=== PATIENT | male | born 1945 | race Caucasian/White ===

== ENCOUNTER 2023-10-14 01:33 | Emergency (ER) | payer MEDICARE, BC, SELFPAY ==
[2023-10-14] VITALS (11 sets, daily range): BP systolic 129–172; BP diastolic 72–94; PULSE 47–57; RESP 16–18; TEMP 36.4; O2SAT 92–100; BMI 28.5
--- NOTE | 2023-10-14 01:35 | ED.GENADULT ---
HPI - General Adult General Time Seen by Provider: 01:35 Date Seen: 10/14/23 Chief complaint: Shortness of Breath/Dyspnea Stated complaint: Short of breath Time Seen by Provider: 10/14/23 01:41 Source: patient, RN notes reviewed and old records reviewed Mode of arrival: ambulatory Limitations: no limitations History of Present Illness HPI narrative: 78-year-old male who comes in today with shortness of breath. Woke with symptoms about 30 minutes prior to the emergency department. Denies any other recent illness cough, nausea, vomiting. Patient describes shortness of breath chest tightness, feeling better but still little chest tightness. No nausea, vomiting. Has noticed little bit of wheezing recently which he attributed allergies. No prior history of asthma, COPD, or heart failure. He does have a history of hypertension and takes metoprolol and losartan. Related Data Home Medications ?Medication ?Instructions ?Recorded ?Confirmed metoprolol succinate 100 mg mg PO 10/14/23 tablet,extended release 24 hr Allergies Allergy/AdvReac Type Severity Reaction Status Date / Time Penicillins AdvReac Verified 10/14/23 01:41 [facility] PFS Social History Smoking Status: Never smoker How often do you have a drink containing alcohol: never AUDIT-C Alcohol total score: 0 Non-prescribed substance use: denies use Exam Narrative: Exam Narrative: General: Well-developed and well-nourished, no acute distress Head: Atraumatic and normocephalic Eyes: Pupils are equal reactive, extraocular motions intact, conjunctiva clear ENT: External nose and ears are normal, posterior pharynx without erythema or exudate Neck: No midline cervical tenderness, full spontaneous range of motion the neck, trachea midline, no adenopathy Heart: Regular rate and rhythm no murmurs or thrills Lungs: Clear to auscultation bilaterally without wheezes or crackles Abdomen: Soft, nontender, nondistended with active bowel sounds Musculoskeletal: No tenderness, deformity, or edema Neurologic: Awake, alert, and oriented x3, no gross focal neurologic deficits, cranial nerves intact as tested Psych: Mood and affect are appropriate Skin: No rashes Const: Vital Signs, click to edit/add: Vital Signs - 24 hr 10/14/23 01:39 10/14/23 01:46 10/14/23 02:00 Temperature 97.6 F Pulse Rate 57 L 49 L Pulse Rate [Pulse Oximeter] 56 L Respiratory Rate 18 Blood Pressure Blood Pressure [Ri ght Upper Arm] 172/82 H Pulse Oximetry 98 98 100 Oxygen Delivery Me thod Room Air 10/14/23 02:05 10/14/23 02:15 10/14/23 02:16 Temperature Pulse Rate 47 L 50 L 53 L Pulse Rate [Pulse Oximeter] Respiratory Rate 16 Blood Pressure 144/94 H 131/78 Blood Pressure [Ri ght Upper Arm] Pulse Oximetry 98 95 92 Oxygen Delivery Me thod 10/14/23 02:30 10/14/23 02:31 10/14/23 02:45 Temperature Pulse Rate 52 L 56 L 51 L Pulse Rate [Pulse Oximeter] Respiratory Rate Blood Pressure 129/74 Blood Pressure [Ri ght Upper Arm] Pulse Oximetry 93 94 93 Oxygen Delivery Me thod 10/14/23 02:46 Temperature Pulse Rate 47 L Pulse Rate [Pulse Oximeter] Respiratory Rate Blood Pressure 129/72 Blood Pressure [Ri ght Upper Arm] Pulse Oximetry 92 Oxygen Delivery Ok thod Course Course ED Course: Patient seen and examined, prior records are reviewed. Patient presents today with chest tightness and shortness of breath that woke him from sleep. No palpitations, no nausea vomiting. Has not noticed any exercise intolerance, chest pain, or shortness of breath with activity. On exam here, finally stable, initial EKG is reassuring. Labs ordered along with chest x-ray. Suspect this could represent bronchospasm, heart failure with orthopnea is little bit less likely. Consider also dysrhythmia like SVT but patient had no sensation of palpitations hand has normal EKG now. Reevaluation(s) Time of Reevaluation #1: 02:56 Reevaluation #1: Labs ordered and independently interpreted by me with normal CBC, normal basic panel, negative troponin, normal BNP. Patient says wheezing and shortness of breath improved after nebulizer treatment. Suspect mild bronchitis or possible allergic bronchitis this patient does report a little bit of wheezing recently along with his more severe shortness of breath and chest tightness tonight. Stable for discharge with prednisone and albuterol. Vital Signs Vital signs: Initial Vital Signs Temperature 97.6 F 10/14/23 01:39 Temperature Source Temporal Artery Scan 10/14/23 01:39 Pulse Rate 56 L 10/14/23 01:39 Respiratory Rate 18 10/14/23 01:39 Blood Pressure 172/82 H 10/14/23 01:39 Blood Pressure Mean 112 H 10/14/23 01:39 Blood Pressure Position Sitting 10/14/23 01:39 Pulse Oximetry 98 10/14/23 01:39 Oxygen Delivery Method Room Air 10/14/23 01:39 Vital Signs Temperature 97.6 F 10/14/23 01:39 Pulse Rate 56 L 10/14/23 01:39 Respiratory Rate 18 10/14/23 01:39 Blood Pressure 172/82 H 10/14/23 01:39 Pulse Oximetry 98 10/14/23 01:39 Oxygen Delivery Method Room Air 10/14/23 01:39 Temperature 97.6 F 10/14/23 01:39 Pulse Rate 47 L 10/14/23 02:46 Respiratory Rate 16 10/14/23 02:16 Blood Pressure 129/72 10/14/23 02:46 Pulse Oximetry 92 10/14/23 02:46 Oxygen Delivery Method Room Air 10/14/23 01:39 Medications Administered Medications: Generic Name Dose Route Start Last Admin Trade Name Freq PRN Reason Stop Dose Admin Albuterol/Ipratropium 1 neb 10/14/23 01:50 10/14/23 02:09 Iprat-Albut 0.5-2.5 Mg/3 Ml Neb 10/14/23 01:51 1 neb ONCE ONE Administration Medical Decision Making Lab Data Labs: Lab Results 10/14/23 Range/Units 02:00 WBC 5.32 (4.50-11.00) K/uL RBC 4.49 (4.30-5.90) m/uL Hgb 14.6 (13.5-17.5) gm/dL Hct 41.1 (37.0-53.0) % MCV 92 (80-100) fL MCH 33 (26-34) pg MCHC 36 (32-36) gm/dL RDW Coeff of Mayruri 12.4 (11.5-15.5) % Plt Count 197 (140-440) K/uL Neut % (Auto) 59.4 (42.0-72.0) % Lymph % (Auto) 26.1 (20-44) % [place] % (Auto) 9.6 (0.0-11.0) % Eos % (Auto) 4.1 (0.0-7.0) % Baso % (Auto) 0.4 (0.0-3.0) % Neut # (Auto) 3.16 (1.7-7.0) K/uL Lymph # (Auto) 1.39 (0.90-2.90) K/uL [place] # (Auto) 0.50 (0.00-0.90) K/UL Eos # (Auto) 0.22 (0.00-0.50) K/uL Baso # (Auto) 0.02 (0.00-0.30) K/uL Abs Immat Gran (auto) 0.02 (0.00-0.30) K/uL Imm/Tot Granulo (auto) 0.4 % Sodium 140 (135-149) mmol/L Potassium 3.7 (3.6-5.1) mmol/L Chloride 106 (96-114) mmol/L Carbon Dioxide 26 (20-32) mmol/L Anion Gap 8 (7-15) mEq/L BUN 23 (7-30) mg/dL Creatinine 0.9 (0.5-1.5) mg/dL Estimated Creat Clear 68.98 Estimated GFR 89 ml/min Glucose 113 (60-115) mg/dL Calcium 8.8 (8.4-10.6) mg/dL Magnesium 1.9 (1.5-2.6) mg/dL NT-Pro-B Natriuret Pep 45 pg/mL POC Troponin I 0.00 L (0.01-0.04) ng/ml ECG Data Attestation: I personally reviewed and interpreted this ECG as follows: Prior ECG tracings: not available for review Interpretation: Performed at 1:43 a.m. independently interpreted by me demonstrates sinus rhythm with sinus arrhythmia rate [address] changes, no acute ischemic changes, ID 178, QTC 422. No prior for comparison. Discharge Plan Discharge Clinical Impression: Acute bronchospasm, Wheezing Patient Disposition: Home, Self-Care Condition: Stable Instructions: Bronchospasm (ED) Additional Instructions: Take prednisone as prescribed Use albuterol inhaler 2 puffs every 2 hours while awake for 24 hours, then 2 puffs every 3 hours while awake for 24 hours, then 2 puffs every 4 hours as needed Follow-up with your primary care doctor in 2-3 days Activity Level: No Restrictions Discharge Diet: Regular Prescriptions: No Action metoprolol succinate 100 mg tablet extended release 24 hr PO Follow Up/Referrals: Francesco Caballero MD [Primary Care Provider] - Stand Alone Forms: [employer] Info Instructions
[2023-10-14 02:08] LABS: Basophils Absolute Auto 0.02 K/uL (0.00-0.30); Basophils Percent Auto 0.4 % (0.0-3.0); Eosinophils Absolute Auto 0.22 K/uL (0.00-0.50); Eosinophils Percent Auto 4.1 % (0.0-7.0); Hematocrit 41.1 % (37.0-53.0); Hemoglobin* 14.6 gm/dL (13.5-17.5); Immature Granulocytes Abs Auto 0.02 K/uL (0.00-0.30); Immature Granulocytes Pct Auto 0.4 %; Lymphocytes Absolute Auto 1.39 K/uL (0.90-2.90); Lymphocytes Percent Auto 26.1 % (20-44); Mean Corpuscular HGB Conc 36 gm/dL (32-36); Mean Corpuscular Hemoglobin 33 pg (26-34); Mean Corpuscular Volume 92 fL (80-100); Monocytes Percent Auto 9.6 % (0.0-11.0); Neutrophils Absolute Auto 3.16 K/uL (1.7-7.0); Neutrophils Percent Auto 59.4 % (42.0-72.0); Platelet Count* 197 K/uL (140-440); RDW Coefficient of Variation % 12.4 % (11.5-15.5); Red Blood Count 4.49 m/uL (4.30-5.90); White Blood Count* 5.32 K/uL (4.50-11.00)
[2023-10-14] MEDS: IPRAT-ALBUT 0.5-2.5 MG/3 ML NEB 1 NEB IH (02:09)
[2023-10-14 02:12] LABS: Slide Review Reflex No
[2023-10-14 02:21] LABS: Chloride* 106 mmol/L (96-114); Potassium* 3.7 mmol/L (3.6-5.1); Sodium* 140 mmol/L (135-149)
[2023-10-14 02:23] LABS: Creatinine* 0.9 mg/dL (0.5-1.5); Est. Creatinine Clearance* 68.98; Estimated Glomerular Filt Rate 89 ml/min
[2023-10-14 02:24] LABS: Anion Gap 8 mEq/L (7-15); Blood Urea Nitrogen* 23 mg/dL (7-30); Calcium* 8.8 mg/dL (8.4-10.6); Carbon Dioxide* 26 mmol/L (20-32); Glucose* 113 mg/dL (60-115); Magnesium* 1.9 mg/dL (1.5-2.6)
[2023-10-14 02:34] LABS: NT Pro B Type NatriureticPept* 45 pg/mL
== END 2023-10-14 03:12 | disposition home or self-care (01) ==
PROVIDERS: Emergency Provider Family Medicine; PCP Family Medicine
DX: J98.01 Acute bronchospasm (principal); R06.2 Wheezing
CPT/HCPCS: 36415; 80048; 83735; 83880; 84484; 85025; 93005; 94640; 94761; 99284

== ENCOUNTER 2025-03-07 03:38 | Emergency (ER) | payer MEDICARE, BC, SELFPAY ==
--- OUTSIDE RECORDS SUMMARY | 2019-11-17 07:31 | XMS_ITS | Continuity of Care Document ---
Author Organization [facility] Address [address] [address] [place] [address] Care Team Providers Care Dish Stacker Name Role Phone [place], [place] Unavailable Unav ailable Procedures Procedure Date Colono Pt Doc Pt W/o Advance Directives Directive Yes / No Effective Date File Name No Information Encounters Encounter Description Practice Location Reason(s) For Visit Diagnoses Date Provider Providers Copied on Encounter [facility], [address] [address], [place], [place], [id number], [place] [facility] No Information [facility]. [address] [address], [place], [place], [id number], . tel:[phone] Family History Family Member Type Diagnosis Age At Onset No Information Payers Payer name Insurance type Covered democrat ID Authoriza tion(s) Medicare [facility] [id number] Blue Cross Of [facility] [id number] Social History Type Description Quantity Date Captured Comments Sex Male Smoking Status No Information Chief Complaint And Reason For Visit No Information Reason For Referral Reason For Referral No Information History Of Present Illness Encounter Date Complaint History Of Prese nt Illness No Information Functional Status Date Functional Assessmen t No Information Instructions Date Instruction Additional Infor mation No Information Assessments Type Assessment Date No Information Patient Care Teams Name Effective Dates (start - stop) Status Members No Information
--- OUTSIDE RECORDS SUMMARY | 2019-11-17 07:31 | XMS_ITS | Continuity of Care Document ---
Author Organization [facility] Address [address] [address] [place] [address] Care Team Providers Care Owner/Operator Name Role Phone [place], [place] Unavailable Unav ailable Procedures Procedure Date Colono Pt Doc Pt W/o Advance Directives Directive Yes / No Effective Date File Name No Information Encounters Encounter Description Practice Location Reason(s) For Visit Diagnoses Date Provider Providers Copied on Encounter [facility], [address] [address], [place], [place], [id number], [place] [facility] No Information [facility]. [address] [address], [place], [place], [id number], . tel:[phone] Family History Family Member Type Diagnosis Age At Onset No Information Payers Payer name Insurance type Covered republican ID Authoriza tion(s) Medicare [facility] [id number] Blue Cross Of [facility] [id number] Social History Type Description Quantity Date Captured [...]
--- OUTSIDE RECORDS SUMMARY | 2025-01-27 04:38 | XMS_ITS | Continuity of Care Document ---
Author Organization [facility] Address [address] [address] [place] [address] Phone Care Team Providers Care Valet Attendant Name Role Phone Anam Valentino MD Unavailable Unavailabl e Allergies, Adverse Reactions, Alerts Substance Reaction Status Criticality PENICILLIN G POTASSIUM Rash Active No In formation Medications Medication Instructions Dosage Effective Dates (start - stop) Status Comments pravastatin 10 mg tablet take 1 tablet b y oral route every day 10 MG - Active hydrochlorothiazide 12.5 mg tablet take 1 tablet by oral route every day 12.5 MG - Active metoprolol tartrate 50 mg tablet take 1 tablet by oral route every day with meals 50 MG - Active Procedures Procedure Date Level Iv-surg Path Gross/micro 20 CRS Charges Level Iv-surg Path Gross/micro 18 CRS Charges Level Iv-surg Path Gross/micro 13 CRS Charges Level Iv-surg Path Gross/micro 08 Advance Directives Directive Yes / No Effective Date File Name No Information Encounters Encounter Description Practice Location Reason(s) For Visit Diagnoses Date Provider Providers Copied on Encounter [facility], [address] [address], [place], [id number], [place] tel:[phone] [facility] No Information 5 Bob Mendieta. [address] [facility], [facility] [address], [place], [place], [id number], [place]. tel:[phone] [facility], [address] [address], [place], [id number], tel:[phone] [facility] Benign neoplasm of sigmoid colonPersonal history of colonic polypsBenign colon polypEncounter for screening for malignant neoplasm of colonBenign neoplasm of cecum 0 No Information Referring Provider: Referral Self, USE FOR SELF REFERRALS. [facility], [address] [address], [place], [id number], tel:[phone] [facility] No Information 0 No Information [facility], [address] [address], [place], [id number], [place] tel:[phone] [facility] Benign colon polypPersonal history of colonic polypsEncounter for screening for malignant neoplasm of colonBenign neoplasm of sigmoid colonBenign neoplasm of sigmoid colonPersonal history of colonic polyps 8 No Information Referring Provider: Referral Self, USE FOR SELF REFERRALS. [facility], [address] [address], [place], [id number], tel:[phone] [facility] Polyp-intes/rect /stom-unc BehColon Cancer ScreeningBenign Neoplasm ColonColon Cancer ScreeningPersona l History Colon PolypsBenign Neoplasm Colon 3 No Information [place]erring [place]: [place], [address] [place], [address]. tel:[phone] [facility], [address] [address], [place], [id number], tel:[phone] [facility] Polyp-intes/rect /stom-unc BehRectal Polyp/BenignPers onal History Colon Polyps 8 No Information Family History Family Member Type Diagnosis Age At Onset Father Problem (finding) Mother Problem (finding) Mother Problem (finding) malignant neoplasm of o vary Immunizations Vaccine Date Status Comments influenza, high dose seasona l, preservative-free administered Note: [facility] bi-direct ional interface ; Source: Other Registry influenza, high dose seasona l, preservative-free administered Note: [facility] bi-direct ional interface ; Source: Other Registry tetanus toxoid, reduced diphtheria toxoid, and acellular pertussis vaccine, adsorbed administered Note: [facility] bi-direct ional interface ; Source: Other Registry Influenza, seasonal, injectable administe red Note: [facility] bi- directional interface ; Source: Other Registry Payers Payer name Insurance type Covered alliance party ID Authoriza tion(s) No Information Social History Type Description Quantity Date Captured Comments Sex Male Smoking Status No Information Chief Complaint And Reason For Visit No Information Reason For Referral Reason For Referral No Information Plan Of Treatment Date Type Action Status Appointment Elijah Nieves BOOKED History Of Present Illness Encounter Date Complaint History Of Prese nt Illness No Information Functional Status Date Functional Assessmen t No Information Instructions Date Instruction Additional Infor mation Colon Cancer Prevention Related to Benign colon polyp Colon Polyps Related to Benig n colon polyp Assessments Type Assessment Date No Information Patient Care Teams Name Effective Dates (start - stop) Status Members No Information
--- OUTSIDE RECORDS SUMMARY | 2025-01-27 04:38 | XMS_ITS | Continuity of Care Document ---
Author Organization [facility] Address [address] [address] [place] [address] Phone Care Team Providers Care Sales Representative Education Courses Name Role Phone Anam Valentino MD Unavailable [...] Encounter [facility], [address] [address], [place], [id number], [place] tel:[phone] [facility] No Information 5 Bob Mendieta. [address] [facility] [facility] [address], [place], [place], [id number], [place]. tel:[phone] [facility], [address] [address], [place], [id number], tel:[phone] [facility] Benign neoplasm of sigmoid colonPersonal history of colonic polypsBenign colon polypEncounter for screening for malignant neoplasm of colonBenign neoplasm of cecum 0 No Information Referring Provider: Referral Self, USE FOR SELF REFERRALS. [facility], [address] [address], [place], [id number], tel:[phone] [facility] No Information 0 No Information [facility], [address] [address], [place], [id number], [place] tel:[phone] [facility] Benign colon polypPersonal history of colonic polypsEncounter for screening for malignant neoplasm of colonBenign neoplasm of sigmoid colonBenign neoplasm of sigmoid colonPersonal history of colonic polyps 8 No Information Referring Provider: Referral Self, USE FOR SELF REFERRALS. [facility], [address] [address], [place], [id number], tel:[phone] [facility] Polyp-intes/rect /stom-unc BehColon Cancer ScreeningBenign Neoplasm ColonColon Cancer ScreeningPersona l History Colon PolypsBenign Neoplasm Colon 3 No Information Referring Provider: [place], [address] [place], [address]. tel:[phone] [facility], [address] [address], [place], [id number], tel:[phone] [facility] Polyp-intes/rect /stom-unc BehRectal Polyp/BenignPers onal [...]
[2025-03-07] VITALS (12 sets, daily range): BP systolic 127–150; BP diastolic 69–83; PULSE 57–72; RESP 16; TEMP 36.5; O2SAT 93–96; BMI 28.4
--- OUTSIDE RECORDS SUMMARY | 2025-03-07 03:40 | XMS_ITS | Clinical Summary ---
Author Organization [facility] Address [address] [place] [address]. [place] [address] Care Team Providers Care Air Hose Coupler Name Role Phone Clinic, [facility] Primary Care Provide r Allergies Active Allergy Reactions Criticality Noted Date Comments Penicillins Hives,Other (See Comments) High 11/09/19 16 Medications Omeprazole (PRILOSEC PO) Active ASPIRIN PO Active METOPROLOL TARTRATE PO Active Social History Tobacco Use Types Packs/Day Years Used Date Smoking Tobacco: Never Alcohol Use Standard Drinks/Week Comments Yes 0 (1 standard drink = 0.6 oz pur e alcohol) rare Adolescent Education Answer Date Record ed Getting School Help Needed Not on file 02/01 Sex and Gender Information Value Date Recorded Sex Assigned at Not on file Legal Sex Male 3:09 AM GOLD LETTERER Gender Identity Not on file Sexual Orientation Not on file Last Filed Vital Signs Vital Sign Reading Time Taken Comments Blood Pressure 142/77 05/21/2021 8:00 PM GOLD LETTERER Pulse 47 05/21/2021 8:00 PM GOLD LETTERER Temperature 36.5 C (97.7 F) 05/21/2021 5:50 PM GOLD LETTERER Respiratory Rate 18 05/21/2021 5:50 PM GOLD LETTERER Oxygen Saturation 100% 05/21/2021 8:17 PM GOLD LETTERER Inhaled Oxygen Concentration - - Weight 95.3 kg (210 lb) 02/23/2021 5:06 AM CDT Height 177.8 cm (5' 10) 01/17/2019 12:01 AM CDT Body Mass Index 30.13 01/17/2019 12:01 AM CDT Plan of Treatment Not on file Insurance MEDICARE [place] OF [facility] MED[employer] SUPPLEMENT Care Teams Air Hose Coupler Relationship Specialty Start Date End Date Clinic, [facility] [address] [place] [address] PCP - General 07/07/13
--- OUTSIDE RECORDS SUMMARY | 2025-03-07 03:40 | XMS_ITS | CCD ---
Author Name Interface, [id number] Address [address] [place] [address] Oncology Address [address] [place] [id number] Reason for Visit Social History Date Name Value 12/24/2024 Sex Unknown
--- OUTSIDE RECORDS SUMMARY | 2025-03-07 03:40 | XMS_ITS | Continuity of Care Document ---
Author Organization [facility] Address [address] [place] [id number] Care Team Providers Care Armed Security Officer Name Role Phone SHANKAR ALEJANDRO Primary Care Provider Assessment No assessment recorded. Plan of Treatment Reminders Order Date Submit Date Provider Last Modified By Organization Details Last Modified Time Details Appointments None record ed. Lab None record ed. Referral None record ed. Procedures None record ed. Surgeries None record ed. Imaging None record ed. Medication Orders None record ed. Patient TargetsNo targets recorded. Patient Instructions Encounter Date Encounter Id Patient Instructions Last Modified By Organization Details Last Modified Time 02/22/2025 [id number] Patient is a 79-year-old male who presents today for follow-up BPH/LUTS. Patient doing well over the last year without significant change in LUTS, gross hematuria or UTIs. He is emptying his bladder well. At this point he is quite content with his urination. IPSS of 5. He would like to continue without medication. Will plan to see him back in 1 year. Not available 02/22/2025 12:30:50 Reason for Referral None Reported. Problems Name Problem SNOMED Code Status Onset Date Resolution Date Notes Provider Name and Address Organization Details Recorded Time Hyperchol esterolem ia 64234770 Active Lakia ragland [facility] 2 09:37:14 Hypertens ry disorder 78565483 Active Lakia ragland [facility] 2 09:37:25 Urge incontine nce of urine 08222675 Active 2015 N39.41 : Urge incontinen ce of urine Not Available [facility] 0 00:[facility]:33 Malignant neoplasm of prostate 699200827 Active 2015 C61 : Malignant tumor of prostate Not Available [facility] 0 00:01:33 Finding of desire for urination 532599795 Active 2015 R39.15 : Finding of desire for urination Not Available [facility] 0 00:01:33 Clinical finding Active 2017 R33.9 : Retention of urine Not Available [facility] 0 00:01:33 Prostate specific antigen above reference range 217461744 Active 2017 R97.20 : Raised prostate specific antigen Not Available [facility] 0 00:01:33 Pelvic and perineal pain 422032932 Active 2017 R10.2 : Pelvic and perineal pain Not Available [facility] 0 00:01:33 Clinical finding Active 2018 N40.1 : Desire for urination Not Available [facility] 0 00:01:33 Slowing of urinary stream 61786619 Active 2018 R39.12 : Slowing of urinary stream Not Available [facility] 0 00:01:33 Problem Notes None recorded. Procedures Surgical History Date Name Laterality Status Provider Name and Address Organization Details Recorded Time 025 COMPLEX VISIT completed MEHRAN BALLESTEROS [address] [place] [address],[address], [place], [address], [facility] 02/22/2025 12:30:12 025 Bladder Scan completed Dominic Butler [facility] 02/22/2025 12:21:48 024 COMPLEX VISIT completed MEHRAN BALLESTEROS [address] [place] [address],[address], [place], [address], [facility] 02/23/2024 12:35:09 024 Bladder Scan completed Ofelia Champion [facility] 02/23/2024 12:29:57 023 Bladder Scan completed Ofelia Champion [facility] 01/13/2023 14:34:13 022 Bladder Scan completed Lakia Hyman [facility] 10/22/2021 09:43:01 021 Past Data Reviewed completed Boy Edge MD [address] [facility],[address] [facility], [place], [address], [facility] 09/11/2020 16:22:15 020 Us urine capacity measure completed Not Available Health Note 10/20/2021 10:08:12 020 Dilate urethra stricture completed Not Available Health Note 10/20/2021 10:08:12 020 Dilate urethra stricture completed Not Available Health Note 10/20/2021 10:08:12 020 Dilate urethra stricture completed Not Available Health Note 10/20/2021 10:08:12 020 Us urine capacity measure completed Not Available Health Note 10/20/2021 10:08:12 020 Dilate urethra stricture completed Not Available Health Note 10/20/2021 10:08:12 020 Dilate urethra stricture completed Not Available Health Note 10/20/2021 10:08:12 020 Dilate urethra stricture completed Not Available Health Note 10/20/2021 10:08:12 020 Us urine capacity measure completed Not Available Health Note 10/20/2021 10:08:12 019 Cystoscopy and treatment completed Not Available Health Note 10/20/2021 10:08:12 019 Us urine capacity measure completed Not Available Health Note 10/20/2021 10:08:12 019 Us urine capacity measure completed Not Available Health Note 10/20/2021 10:08:12 019 Irrigation of bladder completed Not Available Health Note 10/20/2021 10:08:12 019 Prostatectomy (turp) completed Not Available Health Note 10/20/2021 10:08:12 019 Us urine capacity measure completed Not Available Health Note 10/20/2021 10:08:12 018 Us urine capacity measure completed Not Available Health Note 10/20/2021 10:08:12 018 Us urine capacity measure completed Not Available Health Note 10/20/2021 10:08:12 018 Us urine capacity measure completed Not Available Health Note 10/20/2021 10:08:12 016 Cystourethroscopy completed Not Available Health Note 10:08:12 016 Colonoscopy thru stoma spx completed Not Available Health Note 10/20/2021 10:08:12 014 Njx aa&/strd other pn/branch completed Not Available Health Note 10/20/2021 10:08:12 014 Biopsy of prostate completed Not Available Health Note 10:08:12 013 Us urine capacity measure completed Not Available Health Note 10/20/2021 10:08:12 013 Njx aa&/strd other pn/branch completed Not Available Health Note 10/20/2021 10:08:13 013 Biopsy of prostate completed Not Available Health Note 10:08:12 006 Biopsy of prostate completed Not Available Health Note 10:08:13 966 Appendectomy add-on completed Not Available Health Note 0 10/20/2021 10:08:13 Diagnostic colonoscopy completed Not Available Health Note 10/20/2021 10:08:13 Imaging Results None recorded. Procedure Notes None recorded. Medical Equipment None Reported. Allergies Allergen ID Allergen Name Allergen Category Reaction Reaction Severity Criticality Documentation Date Start Date Code Code System Note Provider Name and Address Organization Details Recorded Time 188136 Penicilli n Not available Not available Not available Not available 10/05/2019 12279 RxNorm Not Available [facility] 23:58:42 349318 Product containin g penicilli n (product) medicatio n hives Not available high 02/22/20252018 48344 8001 SNOMED unrec ogniz ed react ion (text : *Unkn own, code: 53338 005) (from exter nal [facility] e) Not Available elvia - External Data Service - prod 5 04:43:05 Medications Name Sig Start Date Stop Date Status Note LastModified by Organization Details LastModified Time losartan 50 mg tablet TAKE 1 TABLET BY MOUTH EVERY DAY 10/29 /2024 completed HN: Patient reports no longer taking Not Available Not Available Not Available azithromy louise 250 mg tablet TAKE 2 TABLETS BY MOUTH TODAY, THEN TAKE 1 TABLET DAILY FOR 4 DAYS 10/22 completed Not Available Not Available Not Available metoprolo l succinate ER 50 mg tablet,ex tended release 24 hr TAKE 1 TABLET BY MOUTH EVERY DAY active Not Available Not Available No t Available metoprolo l succinate ER 200 mg tablet,ex tended release 24 hr TAKE 1 TABLET BY MOUTH EVERY DAY 02/22 completed HN: Patient reports no longer taking Not Available Not Available Not Available prednison e 20 mg tablet 02/22 completed Not Available Not Available Not Available metoprolo l succinate ER 100 mg tablet,ex tended release 24 hr TAKE 0.5 TABLETS (50 MG) BY MOUTH ONCE DAILY. active Not Available Not Available No t Available amlodipin e 5 mg tablet TAKE 1 TABLET BY MOUTH EVERY DAY 02/22 completed HN: Patient reports no longer taking Not Available Not Available Not Available ofloxacin 0.3 % ear drops PLACE 5 DROPS INTO BOTH EARS 2 TIMES DAILY FOR 7 DAYS. 01/13 completed HN: Patient reports no longer taking Not Available Not Available Not Available pravastat in 10 mg tablet TAKE 1 TABLET BY MOUTH EVERYDAY AT BEDTIME 10/22 completed Not Available Not Available Not Available tamsulosi n 0.4 mg capsule 0.4mg 1/day 10/22 completed HN: Patient reports no longer taking Not Available Not Available Not Available amlodipin e 10 mg tablet TAKE 1 TABLET BY MOUTH EVERY DAY active Not Available Not Available No t Available hydrochlo rothiazid e 12.5 mg capsule TAKE 1 CAPSULE BY MOUTH ONCE DAILY 02/22 completed HN: Patient reports no longer taking Not Available Not Available Not Available omeprazol e 20 mg capsule,d elayed release TAKE 1 CAPSULE BY MOUTH EVERY DAY BEFORE A MEAL active Not Available Not Available No t Available codeine 10 mg-guaife nesin 100 mg/5 mL oral liquid TAKE 5 ML BY MOUTH EVERY 4 HOURS IF NEEDED FOR COUGH. MAX DOSE 60 ML PER 24 HRS. 01/13 completed HN: Patient reports no longer taking Not Available Not Available Not Available pravastat in 20 mg tablet TAKE 1 TABLET BY MOUTH EVERYDAY AT BEDTIME active Not Available Not Available No t Available hydrochlo rothiazid e 25 mg tablet TAKE 1 TABLET BY MOUTH EVERY DAY active Not Available Not Available No t Available albuterol sulfate HFA 90 mcg/actua tion aerosol inhaler active HN: Patient reports no longer taking Not Available Not Available Not Available losartan 100 mg tablet TAKE 1 TABLET BY MOUTH EVERY DAY active Not Available Not Available No t Available oxycodone 5 mg tablet 02/22 completed Not Available Not Available Not Available amlodipin e 5mg 1/day 02/22 completed Not Available Not Available Not Available losartan potassium (bulk) 50 mg 1/day 02/22 completed HN: Patient reports no longer taking Not Available Not Available Not Available Vitals Date Recorded Body height Body mass index (BMI) Body weight Provider Name and Address Organization Details Last Updated DateTime 02/22/2025 185.42 cm 28.4 kg/m2 37632.36 g Dominic Butler [facility] 02/22/2025 12:15:09 Social History Question Answer Notes LastModified by Organizat ion Details LastModified Time Tobacco Smoking Status Never Smoker Not Available Health Note 02/22/2024 13:07:50 Do You Have An Advance Directive? Yes [email or web address] Information not available 02/22/2024 What Is Your Level Of Caffeine Consumption? Moderate 2 Cups Daily. 1 Soda Daily. Information not available 02/23/2024 How Much Tobacco Do You Chew? None [email or web address] Information not available 02/22/2024 Have You Or Anyone In Your House Tested Positive For COVID-19 In The Past 14 Days? No [email or web address] Information not available 09/08/2020 Have You Or Anyone In Your House Been Exposed To COVID-19 In The Past 14 Days? No [email or web address] Information not available 10/20/2021 Have You Or Anyone In Your Home Experienced Symptoms Of COVID 19 Such As Fever >100.4, Shortness Of Breath, Difficulty Breathing, Or A Cough? No [email or web address] Information not available 09/08/2020 Have You Traveled Outside Of [place] In The Past 30 Days? No [email or web address] Information not available 09/08/2020 Race White [email or web address] Information n ot available 2019 Ethnicity Not /Lat camille jrothers Information not available 09/11/2020 Preferred Language Kinyarwanda Information not available 10/22/2021 Recreational Drug Use No [email or web address] Information not available 09/08/2020 Could You Be ? No Information not available 10/22/2021 Marital Status erica Informati on not available 2019 Do You Have A Medical Power Of Clinical Staff Anesthesiologist? Yes [email or web address] Information not available 02/22/2024 What Was The Date Of Your Most Recent Tobacco Screening? 02/22/2025 [email or web address] Information not available 02/22/2025 Have You Ever Been Counseled For Unhealthy Alcohol Use? Yes Information not available 01/13/2023 What Is Your Relationship Status? [email or web address] Information not available 02/22/2024 Are You Sexually Active? Yes [email or web address] Information not available 02/22/2024 Has Tobacco Cessation Counseling Been Provided? No Information not available 01/13/2023 How Many Days In The Past Year Have You Consumed 5 Or More Drinks? 0 1 Beer Daily. Information not available 02/23/2024 Sex: Unknown Functional Status Question Answer Note LastModified by Organizat ion Details LastModified Time Do you use any illicit or recreational drugs? No [email or web address] Information not available 02/22/2024 Do you or have you ever used any other forms of tobacco or nicotine? No Information not available 01/13/2023 What is your level of alcohol consumption? Occasional [email or web address] Information not available 02/22/2024 Do you or have you ever used smokeless tobacco? Never used smokeless tobacco [email or web address] Information not available 02/22/2024 Are you currently employed? No Information not available 02/23/2024 Do you or have you ever used e-cigarettes or vape? Never used electronic cigarettes [email or web address] Information not available 02/22/2024 Mental Status None recorded. Family History Nothing Reported Notes:Hypertension:Runs in F amily Rheumatic fever:Runs in Family Cancer, ovarian:Mother Medical History Condition Response Other N High Blood Pressure Y Kidney Stones N Lung Disease N Depression N GERD/Acid Reflux Y Sexually Transmitted Infection N Cancer Y High Cholesterol Y Diabetes N Bleeding Disorder N Heart Disease N Immunizations Vaccine Type Date Status Note Provider Nam e and Address Organization Details Recorded Time Pneumococcal conjugate PCV21, polysaccharide TOP068 conjugate, PF 5 completed Not Available [facility] 02/22/2025 12:19:49 Tdap 5 completed Not Available [facility] 02/22/2025 12:19:49 SARS-COV-2 (COVID-19) vaccine, UNSPECIFIED 1 completed Not Available [facility] 01/13/2023 14:29:49 COVID-19, mRNA, LNP-S, PF, 30 mcg/0.3 mL dose 1 [facility] 09:35:30 Influenza, split virus, trivalent, preservative 7 completed Lakia Goodpaster null, [facility] 10/22/2021 09:35:30 COVID-19, mRNA, LNP-S, PF, 30 mcg/0.3 mL dose 1 completed Lakia Goodpaster null, [facility] 10/22/2021 09:35:30 Tdap 5 completed Lakia Goodpaster null, [facility] 10/22/2021 09:35:30 Influenza, high-dose, trivalent, PF 8 completed Lakia Goodpaster null, [facility] 10/22/2021 09:35:30 Influenza, high-dose, trivalent, PF 9 completed Lakia Goodpaster null, [facility] 10/22/2021 09:35:30 influenza, unspecified formulation 9 completed Not Available [facility] 01/13/2023 14:29:49 SARS-COV-2 (COVID-19) vaccine, UNSPECIFIED 1 completed Not Available [facility] 01/13/2023 14:29:49 COVID-19, mRNA, LNP-S, PF, 30 mcg/0.3 mL dose 1 completed Not Available [facility] 01/13/2023 14:29:49 SARS-COV-2 (COVID-19) vaccine, UNSPECIFIED 1 completed Not Available [facility] 01/13/2023 14:29:49 Past Encounters Encounter ID Performer Location Encounter Start Date Encounter Closed Date Diagnosis/Indication Diagnosis SNOMED-CT Code Diagnosis ICD10 Code Diagnosis IMO Codes Diagnosis Note [id number] EVELYN OSPINAMANMEHRAN [facility] [address] [place] [phone] 02/22/2025 12:09:36 02/27/2025 10:39:17 Lower urinary tract symptoms due to benign prostatic hypertrophy 3386468346 9101 N40.1 68593107 Health Concerns Section Related Observation LastModified by Organization Detai ls LastModified Time None Recorded Concern Status LastModified by Organization Details LastModified Time None Recorded Payers Encounter Date Sequence Insurance Name Policy Number Policy Sparks Covered Member ID Sparks Member ID Guarantor Name 02/22/2025 1 [place] [employer] Elijah I Paxtonl [id number] Elijah I Beyl 02/22/2025 2 [place] [id number] Elijah I Paxtonl [id number] Elijah Gia Nieves Notes Date Note Type Note Provider Name and Address Organization Details Recorded Time 02/22/2025 text/html 02/22/25: Patient is a 79-year-old male who presents today for follow-up BPH/LUTS. Patient doing well over the last year without any worsening of urinary symptoms. He describes mild urgency that is not overly bothersome. His IPSS is 5. He denies any gross hematuria or UTIs. He is not currently taking any medications. 02/23/24: Patient is a 78-year-old male presents today for follow-up of BPH/LUTS. Patient with mild LUTS in the form of urinary urgency, which seems to be rather infrequently and not overly bothersome. He is emptying well per PVR bladder scan. He has not had any gross hematuria or UTIs. He would like to continue to be seen yearly. We did briefly discuss medications however patient would like to hold off at this time. EVELYN CAPONE, PAC [address] [facility],[address], [place], [address], [place] [facility] [place] [facility] 02/22/2025 12:31:04
--- OUTSIDE RECORDS SUMMARY | 2025-03-07 03:40 | XMS_ITS | Clinical Summary ---
Author Organization [facility] [employer] [facility] Address [address] [address] Phone Care Team Providers Care Photoresist Contact Printer Name Role Phone Unavailable Primary Care Provider Unavailabl e Allergies Active Allergy Reactions Criticality Noted Date Comments Penicillins Hives 10/01/2017 Medications No known medications Medical History Medical History Date Comments Prostate cancer (HCC) Hypertension Social History Tobacco Use Types Packs/Day Years Used Date Smoking Tobacco: Never Assessed Alcohol Use Standard Drinks/Week Comments Yes 0 (1 standard drink = 0.6 oz pur e alcohol) Occasional Sex and Gender Information Value Date Recorded Sex Assigned at Not on file Legal Sex Male 10:50 PM CDT Gender Identity Not on file Sexual Orientation Not on file Last Filed Vital Signs Vital Sign Reading Time Taken Comments Blood Pressure 148/91 10/02/2017 12:46 AM CDT Pulse 56 10/02/2017 12:46 AM CDT Temperature 36.9 C (98.5 F) 10/01/2017 11:03 PM CDT Respiratory Rate 16 10/02/2017 12:46 AM CDT Oxygen Saturation 96% 10/01/2017 11:03 PM CDT Inhaled Oxygen Concentration - - Weight 99.8 kg (220 lb) 10/01/2017 11:03 PM CDT Height 182.9 cm (6') 10/01/2017 11:03 PM CDT Body Mass Index 29.84 10/01/2017 11:03 PM CDT Plan of Treatment Not on file Insurance [facility]IC[facility] PART A [facility]
--- OUTSIDE RECORDS SUMMARY | 2025-03-07 03:40 | XMS_ITS | Data Portability ---
Author Organization [facility], [facility] Address [address] [place] [address] Care Team Providers Care Diesel Dinkey Engineer Name Role Phone SHANKAR ALEJANDRO Primary Care Provider [phone] Assessment No assessment recorded. Plan of Treatment [...] Modified By Organization Details Last Modified Time 10/22/2021 [id number] Patient is a 76-year-old male that presents today for BPH, screening for prostate cancer. Patient with stable BPH, underwent TURP with Dr. Sands in January 2019. His IPSS today is 3, QOL of 2. PVR bladder scan 0. Overall quite content with symptoms. We will continue to monitor yearly. Screening for prostate cancer: No family history of prostate cancer, most recent PSA was 1.24. Has had negative biopsy in August 2013. KRUNAL today without nodules. We will continue to follow on a yearly basis. Not available 10/22/2021 10:04:54 01/13/2023 [id number] Patient is a 77-year-old male that presents today for follow-up of BPH/LUTS, screen for prostate cancer. Patient with previous negative prostate biopsy in 2013. His PSA remains low, most recently 1.06. His KRUNAL was without nodules. We discussed that it may be reasonable to discontinue prostate cancer screening given his age, lack of family history, negative biopsies and low PSAs. Patient is agreeable to this. BPH/LUTS: Patient with well-controlled LUTS, does have some mild urgency, frequency and nocturia. He is voiding well per PVR bladder scan. No interest in medication at this time. We will continue to follow patient annually. Not available 01/13/2023 14:48:31 02/23/2024 [id number] Patient is a 78-year-old male presents today [...] like to hold off at this time. Not available 02/23/2024 12:36:11 02/22/2025 [id number] Patient is a 79-year-old male who presents [...] 02/22/2025 12:30:50 Reason for Referral None Reported. Results Created Date Observation Date Name Description Value Unit Range Abnormal Flag Note LastModifiedBy Organization Detail LastModifiedTime Result Notes None recorded. Problems Name Problem SNOMED Code Status Onset Date Resolution Date Notes Provider Name and Address Organization Details Recorded Time Hyperchol esterolem ia 57126231 Active Lakia ragland [facility] 2 09:37:14 Hypertens ry disorder 70831502 Active Lakia ragland [facility] 2 09:37:25 Urge incontine nce of urine 35924430 Active 2015 N39.41 : Urge incontinen ce of urine Not Available [facility] 0 00:01:33 Malignant neoplasm of prostate 556146926 Active 2015 C61 : Malignant tumor of prostate Not Available [facility] 0 00:01:33 Finding of desire for urination 118237805 Active 2015 R39.15 : Finding of desire for urination Not Available [facility] 0 00:01:33 Clinical finding Active 2017 R33.9 : Retention of urine Not Available [facility] 0 00:01:33 Prostate specific antigen above reference range 968164318 Active 2017 R97.20 : Raised prostate specific antigen Not Available [facility] 0 00:01:33 Pelvic and perineal pain 812149052 Active 2017 R10.2 : Pelvic and perineal pain Not Available [facility] 0 00:01:33 Clinical finding Active 2018 N40.1 : Desire for urination Not Available [facility] 0 00:01:33 Slowing of urinary stream 70153715 Active 2018 R39.12 : Slowing of urinary stream Not Available [facility] 0 00:01:33 Problem Notes None recorded. Procedures Surgical History Date Name Laterality Status Provider Name and Address Organization Details Recorded Time 025 COMPLEX VISIT completed MEHRAN BALLESTEROS [address] [place] [address],[address] [place] [address], [address], [facility] 02/22/2025 12:30:12 025 Bladder Scan completed Dominic Butler [facility] 02/22/2025 12:21:48 024 COMPLEX VISIT completed MEHRAN BALLESTEROS [address] [facility],[address], [place], [address], [facility] 02/23/2024 12:35:09 024 Bladder Scan completed Ofelia Champion [facility] 02/23/2024 12:29:57 023 Bladder Scan completed Ofelia Champion [facility] 01/13/2023 14:34:13 022 Bladder Scan completed Lakia Hyman [facility] 10/22/2021 09:43:01 021 Past Data Reviewed completed Boy Edge MD [address] [facility],[address], [place], [address], [facility] 09/11/2020 16:22:15 020 Us urine capacity [...] Name and Address Organization Details Recorded Time 479826 Penicilli n Not available Not available Not available Not available 10/05/2019 31674 RxNorm Not Available [facility] 0 23:58:42 958076 Product containin g penicilli n (product) medicatio n hives Not available high 02/22/20252018 64663 8001 SNOMED unrec ogniz ed react ion (text : *Unkn own, code: [id number]) (from [facility]) Not Available levia - External Data Service - prod 5 [...] Available Not Available Vitals Date Recorded Body mass index (BMI) Body weight Body height Provider Name and Address Organization Details Last Updated DateTime 09/11/2020 28.5 kg/m2 74514.28089 49207 g 182.88 cm Not Available Health Note 09/11/2020 15:28:00 Date Recorded Body mass index (BMI) Body height Body weight Provider Name and Address Organization Details Last Updated DateTime 10/22/2021 28.5 kg/m2 182.88 cm 94271.5109 420586 g Not Available Health Note 10/22/2021 09:34:09 Date Recorded Body weight Provider Name an d Address Organization Details Last Updated DateTime 01/13/2023 20028.36 g [facility] 01/13/2023 14:26:48 Date Recorded Body mass index (BMI) Body height Provider Name and Address Organization Details Last Updated DateTime 01/13/2023 28.4 kg/m2 185.42 cm Not Available Health Note 14:23:19 Date Recorded Body weight Provider Name an d Address Organization Details Last Updated DateTime 02/23/2024 27170.36 g [facility] 02/23/2024 12:20:19 Date Recorded Body mass index (BMI) Body height Provider Name and Address Organization Details Last Updated DateTime 02/23/2024 28.4 kg/m2 185.42 cm Not Available Health Note 11:57:40 Date Recorded Body height Body mass index (BMI) Body weight Provider Name and Address Organization Details Last Updated DateTime 02/22/2025 185.42 cm 28.4 kg/m2 51340.36 g Dominic Butler [place] [facility] 02/22/2025 12:15:09 Social History Question Answer [...] available 09/08/2020 Have You Traveled Outside Of [place] In The Past 30 Days? No [email or web address] Information not available 09/08/2020 Race White Information n ot available 2019 Ethnicity Not /Lat camille [email or web address] Information not available 09/11/2020 Preferred Language Palestinian Information not available 10/22/2021 Recreational Drug Use No [email or web address] Information not available 09/08/2020 Could You Be ? No Information not available 10/22/2021 Marital Status Informati on not available 2019 Do You Have A Medical Power Of Lifter Driver? Yes [email or web address] Information not available 02/22/2024 What Was The Date Of Your Most Recent Tobacco Screening? 02/22/2025 [email or web address] Information not available 02/22/2025 Have You Ever [...] Family Cancer, ovarian:Mother Medical History Condition Response Diabetes N Sexually Transmitted Infection N Other N Bleeding Disorder N High Blood Pressure Y Kidney Stones N Cancer Y Lung Disease N Depression N High Cholesterol Y GERD/Acid Reflux Y Heart Disease N Immunizations Vaccine Type Date Status Note Provider Nam e and Address Organization Details Recorded Time Pneumococcal conjugate PCV21, polysaccharide [id number] conjugate, PF 5 completed Not Available [facility] 02/22/2025 12:19:49 Tdap 5 completed Not Available [facility] 02/22/2025 12:19:49 SARS-COV-2 (COVID-19) vaccine, UNSPECIFIED 1 completed Not Available [facility] 01/13/2023 14:29:49 COVID-19, mRNA, LNP-S, PF, 30 mcg/0.3 mL dose 1 completed Lakia ragland [facility] 10/22/2021 09:35:30 Influenza, split virus, trivalent, preservative 7 completed Lakia Goodpaster null, [facility] 10/22/2021 09:35:30 COVID-19, mRNA, LNP-S, PF, 30 mcg/0.3 mL dose 1 completed Lakia Goodpaster null, [facility] 10/22/2021 09:35:30 Tdap 5 completed Lakia Goodpaster null, [facility] 10/22/2021 09:35:30 Influenza, high-dose, trivalent, PF 8 completed Lakia Goodpaster null, [facility] 10/22/2021 09:35:30 Influenza, high-dose, trivalent, PF 9 completed Lakia Goodpaster null, [facility] 10/22/2021 09:35:30 influenza, unspecified formulation 9 completed Not Available [facility] 01/13/2023 14:29:49 SARS-COV-2 (COVID-19) vaccine, UNSPECIFIED 1 completed Not Available [facility] 01/13/2023 14:29:49 COVID-19, mRNA, LNP-S, PF, 30 mcg/0.3 mL dose 1 completed Not Available [facility] 01/13/2023 14:29:49 SARS-COV-2 (COVID-19) vaccine, UNSPECIFIED 1 completed Not Available [facility] 01/13/2023 14:29:49 Past Encounters Encounter ID Performer Location Encounter Start Date Encounter Closed Date Diagnosis/Indication Diagnosis SNOMED-CT Code Diagnosis ICD10 Code Diagnosis IMO Codes Diagnosis Note [id number] Boy Edge MD [facility] [address] [address] 09/11/2020 15:27:57 09/11/2020 17:46:49 Prostate specific antigen above reference range 228811144 R97.20 PSA low and stable following TURP Benign pro static hyperplasia with outflow obstruction 504657847 N40.1 He is pleased with LUTS following his procedure Stenosis o f urinary meatus 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 N99.110 now patent stable [id number] MEHRAN BALLESTEROS [facility] [address] [facility],[address] [place] [phone] 10/22/2021 09:34:06 10/22/2021 10:12:54 Screening for malignant neoplasm of prostate 708782241 Z12.5 Lower urin jackie tract symptoms due to benign prostatic hypertrophy 3041329921 9101 N40.1 [id number] [facility] [address] [place] [address],[address] [place] [phone] 01/13/2023 14:21:15 01/13/2023 15:30:13 Lower urinary tract symptoms due to benign prostatic hypertrophy 6469577199 9101 N40.1 Screening for malignant neoplasm of prostate 362153507 Z12.5 [id number] [facility] [address] [place] [address],[address] [place] [phone] 02/23/2024 11:56:52 02/23/2024 17:16:05 Lower urinary tract symptoms due to benign prostatic hypertrophy 9087422718 9101 N40.1 [id number] [facility] [address] [place] [address],[address] [place] [phone] 02/22/2025 12:09:36 02/27/2025 10:39:17 Lower urinary tract symptoms due to benign prostatic hypertrophy 5272420595 9101 N40.1 [id number] Health Concerns Section Related Observation LastModified by Organization Detai ls LastModified Time None Recorded Concern Status LastModified by Organization Details LastModified Time None Recorded Advance Directives Directive Y: Payers Insurance Date Sequence Insurance Name Policy Number Policy Sparks Covered Member ID Sparks Member ID Guarantor Name 02/19/2025 1 [place] [employer] Elijah I Beyl [id number] Elijah I Paxtonl 02/27/2025 2 [place] [id number] Elijah I Ezequiel [id number] Elijah I Ezequiel Notes Date Note Type Note Provider Name and Address Organization Details Recorded Time 09/11/2020 text/html former pt of Dr Sands here to establish care He is s/p TURP in [address] Sands Path nodular hyperplasia Had issues with meatal stenosis req dilation - however this seems to have resolved He is pleased with LUTS PSA 08/30/20 was 0.97 (was 8-9 pre TURP) oBy Edge MD [address] [facility],[address], [place], [address], [facility] 09/11/2020 16:23:52 10/22/2021 text/html Patient is a 75-year-old male that presents today for BPH, history of elevated PSA. Patient underwent TURP with Dr. 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 Patient doing quite well with his LUTS, minimal complaints of urgency with water running. IPSS today of 3, QOL of 2. No recent hematuria or UTIs. History of elevated PSA: Patient did have elevated PSAs prior to TURP procedure in January 2019. Did have negative biopsy in August 2013. Pathology from TURP did not show any evidence of malignancy. No family history of CaP. Most recent PSA from August 2021 was 1.24. MEHRAN BALLESTEROS [address] [facility],[address], [place], [address], [facility] 10/22/2021 10:05:06 01/13/2023 text/html 01/13/23: Patient is a 77-year-old male who presents today for BPH/LUTS, screening for prostate cancer. Patient with history of elevated PSA in the past, underwent negative prostate biopsy in August 2013. No family history of prostate cancer. Most recent PSA from October 2022 was 1.06. BPH/LUTS: Patient with well-controlled LUTS, previously underwent TURP with Dr. Sands in January 2019. IPSS of 6. Denies any gross hematuria or UTIs. 10/22/21: Patient is a 76-year-old male that presents today for BPH, screening for prostate cancer. Patient with stable BPH, underwent TURP with Dr. Sands in January 2019. His IPSS today is 3, QOL of 2. PVR bladder scan 0. Overall quite content with symptoms. We will continue to monitor yearly. Screening for prostate cancer: No family history of prostate cancer, most recent PSA was 1.24. Has had negative biopsy in August 2013. KRUNAL today without nodules. We will continue to follow on a yearly basis. MEHRAN BALLESTEROS [address] [place] [address],[address], [place], [address], [facility] 01/13/2023 14:48:43 02/23/2024 text/html 02/23/24: Patient is a 78-year-old male presents today for follow-up of BPH/LUTS. Patient not currently taking any medication. He does note some mild urinary urgency that is not overly bothersome. He has not noticed any gross hematuria or UTIs. 01/13/23: Patient is a 77-year-old male that presents today for follow-up of BPH/LUTS, screen for prostate cancer. Patient with previous negative prostate biopsy in 2013. His PSA remains low, most recently 1.06. His KRUNAL was without nodules. We discussed that it may be reasonable to discontinue prostate cancer screening given his age, lack of family history, negative biopsies and low PSAs. Patient is agreeable to this. BPH/LUTS: Patient with well-controlled LUTS, does have some mild urgency, frequency and nocturia. He is voiding well per PVR bladder scan. No interest in medication at this time. We will continue to follow patient annually. MEHRAN BALLESTEROS [address] [place] [address],[address], [place], [address], [facility] 02/23/2024 12:36:21 02/22/2025 text/html 02/22/25: Patient is a 79-year-old [...] like to hold off at this time. MEHRAN BALLESTEROS [address] [place] [address],[facility] [address], [place], [address], [facility] 02/22/2025 12:31:04
--- OUTSIDE RECORDS SUMMARY | 2025-03-07 03:40 | XMS_ITS | Patient Health Record ---
Author Organization [facility] Address [address] [place] [address] Care Team Providers Care Editor Map Name Role Phone Tarik Fischer Primary Care Provider REBECCA Biggs [phone] Allergies Allergen (clinical drug ingredient) Drug/Non Drug Allergy documented on EMR Reaction Allergy Type Onset Date Status Penicillin Unknown Drug Allergy Active Reason For Referral No Information Medications Medication SIG (Take, Route, Fr equency, Duration) Notes Start Date End Date Status Unknown Blood Pressure Activ e Social History Tobacco Use: Social History Observation Description Date Details (start date - stop date) Never Smoker NA - NA Social History : Social Info Question Answer Notes How often do you consume alcohol? Answer: less than 6 per week Recreational drug use Social Info Question Answer Notes Did you ever use recreationa l drugs? Answer: No Tobacco Use: Social Info Question Answer Notes Tobacco use/smoking Are you a nonsmoker Additional Details Category Social Info Options Details Occupation Current occupation: Wealth A dvisor Problems Problem Type SNOMED Code ICD Code Onset Dates Problem Status W/U Status Risk Notes Problem Sensorineural hearing loss (65043384) Sensorineural hearing loss (389.10) Active confirmed Problem Tinnitus (25950223) Tinnitus (388.30) Active confirmed Plan Of Treatment No Information Insurance Providers Payer Name Payer Address Payer Phone Subscriber Number Group Number Insured Name Patient Relationship to Insured Coverage Start Date Coverage End Date [facility] [address] [address] [place] [address] [phone] [id number] Elijah Nieves Self - patient is the insured Medical (General) History Medical History History ICD Code Hypertension Prostate Cancer Surgical History Surgery Date(Month/Year) Appendectomy 1966
--- OUTSIDE RECORDS SUMMARY | 2025-03-07 03:41 | XMS_ITS | Clinical Summary ---
Author Organization [employer] [facility] [employer] [facility] Address [address] [place] [address] Care Team Providers Care Whizzer Operator Name Role Phone Francesco Caballero MD Primary Care Provider [phone] Allergies Active Allergy Reactions Criticality Noted Date Comments Penicillins Hives,*Unknown High 02/21/2019 Medications metoprolol succinate (TOPROL XL) 50 mg sustained-release tabletIndications :Primary hypertension Take 1 Tablet (50 mg) by mouth once daily. 90 Tablet 3 5 Active losartan (COZAAR) 100 mg tabletIndications :Primary hypertension Take 1 Tablet (100 mg) by mouth once daily. 90 Tablet 3 5 Active hydroCHLOROthiazi de 25 mg tabletIndications :Primary hypertension Take 1 Tablet (25 mg) by mouth once daily. 90 Tablet 3 5 Active amLODIPine (NORVASC) 10 mg tabletIndications :Primary hypertension Take 1 Tablet (10 mg) by mouth once daily. 90 Tablet 3 5 Active omeprazole (PRILOSEC) 20 mg Delayed-Release capsuleIndication s:Chronic GERD Take 1 Capsule (20 mg) by mouth once daily before a meal. 90 Capsule 3 5 Active pravastatin (PRAVACHOL) 20 mg tabletIndications :Hyperlipidemia LDL goal <130 Take 1 Tablet (20 mg) by mouth at bedtime. 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, lumbar reg ion 12/29/2019 BPH (benign prostatic hyperplasia) 02/23/2019 Thoracic aortic aneurysm (TAA) 02/16/2014 Resolved Problems Problem Noted Date Diagnosed Date Resolved Date Mass of right side of neck 02/27/2023 0 07/18/2024 Urinary retention 02/23/2019 11/10/2022 CAD (coronary artery disease) 12/15/2013 11/10/2022 Obstructive sleep apnea (adult) (pediatric) 11/30/2013 11/10/2022 Hypercholesterolemia 11/15/2012 023 Malignant neoplasm of prostate 11/15/2012 11/10/2022 Essential hypertension 11/10 Encounters Date Type Department Care Team Description 01/26/2025 10:20 AM CDT Office Visit [facility] [address] [place] [address] Francesco Caballero MD Medicare ANNUAL (subsequent) Visit (fasting) 01/26/2025 Travel 01/24/2025 Travel 12/06/2024 Refill [facility] [address] [place] [address] Francesco Caballero MD Refill Request (Amlodipine) from Last 3 Months Immunizations Immunization Administration Dates Next Due COVID-19 vaccine (Moderna 10 0mcg/0.5mL) AKBAR GIVENS 08/19/2020 COVID-19 vaccine ([employer]Bio NTech 30mcg/0.3mL) PFAKBAR 08/05/2020,07/17/2020,06/26/2020 Covid-19 Vaccine (Unspecified) 04/09/2021,2020 Influenza Virus, Unspecified 02/03/2019 Influenza, High-dose Inactivated 03/28/2019,01/26 Influenza, IIV3 (Age >=3 years) 05/22/2006 Tdap 05/30/2014 Family History Medical History Relation Name Comments No Known Problems Brother Coronary artery disease Father Heart failure Father Hyperlipidemia Father Hypertension Father Cancer-ovarian Mother Depression Mother Diabetes type II Mother No Known Problems Sister Relation Name Status Comments Brother Alive Father Mother Sister Alive Social History Tobacco Use Types Packs/Day Years Used Date Smoking Tobacco: Some Days Cigars Smokeless Tobacco: Never Tobacco Cessation:Ready to Q uit: Not Asked; Counseling Given: Not Answered Comments:Occasional cigars; never cigs Alcohol Use Standard Drinks/Week Comments Yes 14 (1 standard drink = 0.6 oz pure alcohol) 7 Glasses of wine, 7 Cans of beer per week PHQ-2 Answer Date Recorded PHQ-2 TOTAL SCORE 0 01/26/2025 Social Connections Answer Date Recorded Do you often feel lonely or isolated from those around you? 0 01/26/2025 Alcohol Use Answer Date Recorded How often do you have a drink containing alcohol ? 4 01/26/2025 How many drinks containing a lcohol do you have on a typical day when you are drinking? 0 01/26/2025 How often do you have five or more drinks on one occasion? 0 01/26/2025 Financial Resource Strain Answer Date R ecorded Difficulty of Paying Living Expenses 3 01/26/2025 Difficulty of Paying Living Expenses Not on file 01/26/2025 Food Insecurity Answer Date Recorded Do you worry your food will run out before you are able to buy more? 1 01/26/2025 Transportation Needs Answer Date Record ed Does lack of transportation keep you from medica l appointments? 1 01/26/2025 Does lack of transportation keep you from work, meetings or getting things that you need? 1 01/26/2025 Housing Stability Answer Date Recorded What is your housing situation today? 1 01/26/2025 Utilities Answer Date Recorded Do you have trouble paying f or utilities (for example, heat, electricity, water, phone)? 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 Gender Identity Not on file Sexual Orientation Not on file Obstetrics History Last Filed Vital Signs Vital Sign Reading Time Taken Comments Blood Pressure 146/70 01/26/2025 11:09 AM CDT Pulse 59 01/26/2025 10:25 AM CDT Temperature 36.8 C (98.2 F) 01/26/2025 10:25 AM CDT Respiratory Rate 16 02/27/2023 12:1 5 PM CDT Oxygen Saturation 97% 01/26/2025 10: 25 AM CDT Inhaled Oxygen Concentration - - Weight 99.2 kg (218 lb 12.8 oz) 025 10:25 AM CDT Height 182.9 cm (6' 0.01) 01/26/2025 1 0:25 AM CDT Body Mass Index 29.67 01/26/2025 10:25 AM CDT Plan of Treatment Upcoming Encounters Date Type Department Care Team (Late st Contact Info) Description 03/08/2025 1:15 PM PHLEBOTOMY INSTRUCTOR Office Visit [facility] [address] [facility] [address] [place] [address] [place] [address] [place], [place] [phone] 05/02/2025 8:30 AM PHLEBOTOMY INSTRUCTOR Telemedicine [facility] [address] [facility] [address] [place] [phone] Zaid Batres PA [address] [facility] [address] [place] [address] Health Maintenance Due Date Last Done Comments Pneumococcal series for age 50+ (1 of 2 - PCV) 10/05/1966 Zoster (shingles) series for age 50+ (1 of 2) 10/05/1997 RSV vaccine for adults or (1 - 1-dose 75+ series) 10/05/2022 Tetanus booster 05/30/2024 05/30/2014 Influenza Vaccine (#1) 2024 9, 02/03/2019, 02/17/2018, Additional history exists BMI (ht and wt on same day) for age 18+ 01/26/2026 01/26/2025, 07/18/2024, 11/23/2023, Additional history exists Depression screening for age 12+ 01/26/2026 01/26/2025, 11/23/2023, 11/10/2022, Additional history exists Medicare Wellness for age 65+ 01/27/2026 01/26/2025, 11/23/2023, 11/10/2022, Additional history exists Hepatitis C screening for age 18-79 Completed 11/10/2022 Hepatitis B series for 19+ Aged Out N o longer eligible based on patient's age to complete this topic Procedures Procedure Name Priority Date/Time Associated Diagnosis Comments CBC WITH AUTO DIFFERENTIAL Routine 01/26/2025 11:10 AM CDT Primary hypertension COMP METABOLIC PANEL Routine 01/26/2025 11:10 AM CDT Primary hypertension CBC WITH AUTO DIFFERENTIAL Routine 01/26/2025 11:10 AM CDT Primary hypertension CORTISOL TOTAL Routine 01/26/2025 11:10 AM CDT Hypertension ALDOSTERONE LC/MS BLOOD Routine 01/26/2025 11:10 AM CDT Hypertension RENIN ACTIVITY BLOOD Routine 01/26/2025 11:10 AM CDT Hypertension LC HCV ANTIBODY RFX TO QUANT PCR Routine 11/10/2022 8:38 AM CDT Need for hepatitis C screening test from Last 3 Months or Most Recently Relevant to Health Maintenance Results * CORTISOL TOTAL (01/26/2025 11:10 AM CDT) CORTISOL, TOTAL 8.3 mcg/dL 4:30 AM CDT [facility] Comment: The Cortisol result may be decreased on average 10-20% relative to results previously obtained with this method due to a recent quality improvement made in November 2024 by the reagent bottled beverage inspector. Reference Range: For 8 a.m.(7-9 a.m.) Specimen: 4.0-22.0 Reference Range: For 4 p.m.(3-5 p.m.) Specimen: 3.0-17.0 * Please interpret above results accordingly * Blood BLOOD SPECIMEN / Unknown [facility] / Unknown 01/26/2025 11:10 AM CDT 01/26/2025 11:10 AM CDT us Francesco Caballero MD CHEMISTRY Final Result [facility] [address], * ALDOSTERONE LC/MS BLOOD (01/26/2025 11:10 AM CDT) [facility] ALDOSTERONE, LC/MS/MS <1 ng/dL 02/01/2025 11:30 AM CDT [facility] Comment: Adult Reference Ranges for Aldosterone: Upright 8:00-10:00 am < or = 28 ng/dL Upright 4:00-6:00 pm < or = 21 ng/dL Supine 8:00-10:00 am 3-16 ng/dL This test was developed and its analytical performance characteristics have been determined by [employer]. It has not been cleared or approved by the FDA. This assay has been validated pursuant to the CLIA regulations and is used for clinical purposes. Blood BLOOD SPECIMEN / Unknown [facility] / Unknown 01/26/2025 11:10 AM CDT 01/26/2025 11:10 AM CDT us Francesco Caballero MD SEND OUTS Final Result Performing Organization Address [facility] de Phone Number [facility] [address] [phone], * RENIN ACTIVITY BLOOD (01/26/2025 11:10 AM CDT) [facility] PLASMA RENIN ACTIVITY, LC/MS/MS 1.24 0.25 - 5.82 ng/mL/h 01/29/2025 12:42 PM CDT [facility] Comment: This test was developed and its analytical performance characteristics have been determined by [employer]. It has not been cleared or approved by the FDA. This assay has been validated pursuant to the CLIA regulations and is used for clinical purposes. Blood BLOOD SPECIMEN / Unknown [facility] / Unknown 01/26/2025 11:10 AM CDT 01/26/2025 11:10 AM CDT us Francesco Caballero MD SEND OUTS Final Result Performing Organization Address [facility] de Phone Number [facility] [address] [place] [address], * CBC WITH AUTO DIFFERENTIAL (01/26/2025 11:10 AM CDT) [facility] WHITE BLOOD CELL COUNT 5.2 3.8 - 10.8 Thousand/u L 01/27/2025 3:35 AM CDT [facility] RED BLOOD CELL COUNT 4.53 4.20 - 5.80 Million/uL 01/27/2025 3:35 AM CDT [facility] HEMOGLOBIN 14.9 13.2 - 17.1 g/dL 01/27/2025 3:35 AM CDT [facility] HEMATOCRIT 43.0 38.5 - 50.0 % 01/27/2025 3:35 AM CDT [facility] MCV 94.9 80.0 - 100.0 fL 01/27/2025 3:35 AM CDT [facility] MCH 32.9 27.0 - 33.0 pg 01/27/2025 3:35 AM CDT [facility] MCHC 34.7 32.0 - 36.0 g/dL 01/27/2025 3:35 AM CDT [facility] Comment: For adults, a slight decrease in the calculated MCHC value (in the range of 30 to 32 g/dL) is most likely not clinically significant; however, it should be interpreted with caution in correlation with other red cell parameters and the patient's clinical condition. RDW 12.6 11.0 - 15.0 % 01/27/2025 3:35 AM CDT [facility] PLATELET COUNT 197 140 - 400 Thousand/u L 01/27/2025 3:35 AM CDT [facility] MPV 10.8 7.5 - 12.5 fL 01/27/2025 3:35 AM CDT [facility] NEUTROPHILS 71.7 % 01/27/2025 3:35 AM CDT [facility] LYMPHOCYTES 17.7 % 01/27/2025 3:35 AM CDT [facility] MONOCYTES 7.9 % 01/27/2025 3:35 AM CDT [facility] EOSINOPHILS 2.3 % 01/27/2025 3:35 AM CDT [facility] BASOPHILS 0.4 % 01/27/2025 3:35 AM CDT [facility] ABSOLUTE NEUTROPHILS 3728 1500 - 7800 cells/uL 01/27/2025 3:35 AM CDT [facility] ABSOLUTE LYMPHOCYTES 920 850 - 3900 cells/uL 01/27/2025 3:35 AM CDT [facility] ABSOLUTE MONOCYTES 411 200 - 950 cells/uL 01/27/2025 3:35 AM CDT [facility] ABSOLUTE EOSINOPHILS 120 15 - 500 cells/uL 01/27/2025 3:35 AM CDT [facility] ABSOLUTE BASOPHILS 21 0 - 200 cells/uL 01/27/2025 3:35 AM CDT [facility] Blood BLOOD SPECIMEN / Unknown [facility] / Unknown 01/26/2025 11:10 AM CDT 01/26/2025 11:10 AM CDT us Francesco Caballero MD HEMATOLOGY Final Result [facility] [address] [place] [address], * COMP METABOLIC PANEL (01/26/2025 11:10 AM CDT) SODIUM 142 135 - 146 mmol/L 01/27/2025 5:05 AM CDT [facility] POTASSIUM 3.5 3.5 - 5.3 mmol/L 01/27/2025 5:05 AM CDT [facility] CHLORIDE 102 98 - 110 mmol/L 01/27/2025 5:05 AM CDT [facility] CARBON DIOXIDE 31 20 - 32 mmol/L 01/27/2025 5:05 AM CDT [facility] GLUCOSE 85 65 - 99 mg/dL 01/27/2025 5:05 AM CDT [facility] Comment: Fasting reference interval CALCIUM 9.5 8.6 - 10.3 mg/dL 01/27/2025 5:05 AM CDT [facility] CREATININE 1.08 0.70 - 1.28 mg/dL 01/27/2025 5:05 AM CDT [facility] BUN/CREATININE RATIO SEE NOTE: 6 (calc) 01/27/2025 5:05 AM CDT [facility] Comment: Not Reported: BUN and Creatinine are within reference range. EGFR 71 > OR = 60 mL/min/1. 73m2 01/27/2025 5:05 AM CDT [facility] ALBUMIN 4.4 3.6 - 5.1 g/dL 01/27/2025 5:05 AM CDT [facility] PROTEIN, TOTAL 6.5 6.1 - 8.1 g/dL 01/27/2025 5:05 AM CDT [facility] BILIRUBIN, TOTAL 1.0 0.2 - 1.2 mg/dL 01/27/2025 5:05 AM CDT [facility] ALKALINE PHOSPHATASE 76 35 - 144 U/L 01/27/2025 5:05 AM CDT [facility] ALT 22 9 - 46 U/L 01/27/2025 5:05 AM CDT [facility] AST 16 10 - 35 U/L 01/27/2025 5:05 AM CDT [facility] UREA NITROGEN (BUN) 17 7 - 25 mg/dL 01/27/2025 5:05 AM CDT [facility] GLOBULIN 2.1 1.9 - 3.7 g/dL (calc) 01/27/2025 5:05 AM CDT [facility] ALBUMIN/GLOBULI N RATIO 2.1 1.0 - 2.5 (calc) 01/27/2025 5:05 AM CDT [facility] Blood BLOOD SPECIMEN / Unknown [facility] / Unknown 01/26/2025 11:10 AM CDT 01/26/2025 11:10 AM CDT Francesco Caballero MD CHEMISTRY Final Result [facility] [address] [address], * LC HCV ANTIBODY RFX TO QUANT PCR (11/10/2022 8:38 AM CDT) [facility] HCV Ab Non Reactive Non Reactive 11/12/2022 2:08 PM CDT [facility] Blood BLOOD SPECIMEN / Unknown Venipuncture / Unknown 11/10/2022 8:38 AM CDT 11/10/2022 8:39 AM CDT Narrative [facility] - 11/12/2022 2:08 PM CDT Performed at: 01 - [facility] [address] [place], [place] [id number] Road Crew Member: Guzman Aguila MD, Phone: [phone] us Francesco Caballero MD LABORATORY Final Result [facility] [address] [place] [id number], [place] from Last 3 Months or Most Recently Relevant to Health Maintenance Insurance MEDICARE PART A HB ONLY MEDICARE PART B HB ONLY MEDICARE PB ONLY [facility] Advance Directives * Full Code (Latest Code Status on File) Date Activated Date Inactivated Comments 02/27/2023 9:17 AM 02/27/2023 2:33 PM Question Answer Comments Code Status Discussion: Reviewed Preferences * Full Code Date Activated Date Inactivated Comments 02/22/2019 5:42 AM 02/23/2019 12:45 PM Care Teams Whizzer Operator Relationship Specialty [place] [address] [place] [address] PCP - General Family Practice 09/01/22
--- NOTE | 2025-03-07 03:50 | ED_ITS ---
HPI - General Adult General Time Seen by Provider: 03:50 Date Seen: 03/07/25 Chief complaint: Unspecified Complaint, Adult Stated complaint: Wheezing Time Seen by Provider: 03/07/25 03:49 Source: patient and RN notes reviewed Mode of arrival: ambulatory Limitations: no limitations History of Present Illness HPI narrative: This 79-year-old male is ambulatory into the ED with concern of wheezing. He was sound asleep, his came into the room and heard him whistling in his sleep. He does not have a history of asthma or COPD, is a nonsmoker. Last year he did get an inhaler for similar symptoms. He has been sick about 3 or 4 days now, feels like his symptoms started on Thursday. Thursday was just in his lounge chair, was achy, had a sore throat, was coughing. Thursday he felt better, today he felt pretty good. He has not noted any fevers. He did receive his pneumonia vaccine and RSV vaccine about a week ago. He denies any shortness of breath at this time. He does state on Thursday he was coughing so hard his chest felt sore but that has improved. No nausea vomiting or diarrhea with these symptoms. Related Data Home Medications ?Medication ?Instructions ?Recorded ?Confirmed metoprolol succinate 100 mg mg PO 10/14/23 tablet,extended release 24 hr Allergies Allergy/AdvReac Type Severity Reaction Status Date / Time Penicillins AdvReac Verified 10/14/23 01:41 Review of Systems Status of ROS: Reports: 6 or more systems reviewed and unremarkable except as noted in History and below PFSH PFS Social History Smoking Status: Never smoker Do you use any of these nicotine containing products: None Second hand tobacco smoke exposure: No How often do you have a drink containing alcohol: 4 or more times a week How many standard drinks containing alcohol do you have on a typical day: 1 or 2 How often do you have six or more drinks on one occasion: Daily or almost daily AUDIT-C Alcohol total score: 8 Non-prescribed substance use: denies use service: No Exam Const: Vital Signs, click to edit/add: Vital Signs - 24 hr 03/07/25 03:46 03/07/25 03:47 03/07/25 03:48 Temperature 97.7 F Pulse Rate 61 59 L Pulse Rate [Left P ulse Oximeter] 60 Respiratory Rate 16 Blood Pressure 141/80 H Blood Pressure [Ri ght Upper Arm] 150/83 H Pulse Oximetry 96 94 94 Oxygen Delivery Me thod Room Air 03/07/25 04:00 03/07/25 04:03 03/07/25 04:15 Temperature Pulse Rate 61 72 67 Pulse Rate [Left P ulse Oximeter] Respiratory Rate Blood Pressure 127/69 Blood Pressure [Ri ght Upper Arm] Pulse Oximetry 93 96 94 Oxygen Delivery Me thod 03/07/25 04:30 03/07/25 04:31 03/07/25 04:45 Temperature Pulse Rate 69 62 60 Pulse Rate [Left P ulse Oximeter] Respiratory Rate Blood Pressure 144/76 H Blood Pressure [Ri ght Upper Arm] Pulse Oximetry 95 93 95 Oxygen Delivery Me thod 03/07/25 05:00 03/07/25 05:02 03/07/25 05:15 Temperature Pulse Rate 59 L 63 57 L Pulse Rate [Left P ulse Oximeter] Respiratory Rate Blood Pressure 133/75 Blood Pressure [Ri ght Upper Arm] Pulse Oximetry 94 93 95 Oxygen Delivery Me thod This 79-year-old male is alert, interactive, no apparent distress, sitting up in bed in exam 5. His speech is normal, no hoarseness, no stridor. Sclera clear, extraocular muscles intact. Symmetrical facial function. Neck supple, no adenopathy, no jugular venous distension. He forces expiration and can hear some wheezing. When I get him to just breathes easily in an out, do hear some end expiratory wheezing within the lungs, definitely mild. Otherwise no crackles, no tachypnea, no accessory muscle use. CV regular rate and rhythm, no murmur, normal S1-S2, no S3-S4. He has no lower extremity edema. Documenting provider has reviewed patient's vital signs: yes Course Course ED Course: Patient has some mild wheezing, certainly could be viral induced. He was not hypoxic on presentation but will monitor with pulse oximetry while here to ensure no hypoxia. Will get a portable chest x-ray. Triple viral swab has been collected by nursing staff appropriately so. Will do a DuoNeb and re-evaluate to see if he has response from this. Reevaluation(s) Time of Reevaluation #1: 04:32 Reevaluation #1: Patient feels better after the neb, states he does not hear any wheezing any longer. Lungs have improved, no end-expiratory wheezing. Reviewed with them that I am awaiting radiology over read on the chest x-ray, I do not see any pneumonia but will await the radiologist read. If the radiologist's is not seen anything, will discharge with an inhaler and steroids. We did discuss inflammation from respiratory viruses that can cause the wheezing. If there is no infiltrate on his chest x-ray, his current symptoms suggest viral rather than bacterial etiology. It is likely that antibiotics are not going to be indicated at this time. Vital Signs Vital signs: Initial Vital Signs Temperature 97.7 F 03/07/25 03:46 Temperature Source Temporal Artery Scan 03/07/25 03:46 Pulse Rate 60 03/07/25 03:46 Respiratory Rate 16 03/07/25 03:46 Blood Pressure 150/83 H 03/07/25 03:46 Blood Pressure Mean 105 03/07/25 03:46 Blood Pressure Position Semi-Fowlers 03/07/25 03:46 Pulse Oximetry 96 03/07/25 03:46 Oxygen Delivery Method Room Air 03/07/25 03:46 Vital Signs Temperature 97.7 F 03/07/25 03:46 Pulse Rate 60 03/07/25 03:46 Respiratory Rate 16 03/07/25 03:46 Blood Pressure 150/83 H 03/07/25 03:46 Pulse Oximetry 96 03/07/25 03:46 Oxygen Delivery Method Room Air 03/07/25 03:46 Temperature 97.7 F 03/07/25 03:46 Pulse Rate 57 L 03/07/25 05:15 Respiratory Rate 16 03/07/25 03:46 Blood Pressure 133/75 03/07/25 05:02 Pulse Oximetry 95 03/07/25 05:15 Oxygen Delivery Method Room Air 03/07/25 03:46 Medications Administered Medications: Discontinued Medications Generic Name Dose Route Start Last Admin Trade Name Freq PRN Reason Stop Dose Admin Albuterol/Ipratropium 1 neb 03/07/25 03:57 03/07/25 04:05 Iprat-Albut 0.5-2.5 Mg/3 Ml Neb 03/07/25 03:58 1 neb ONCE ONE Administration Medical Decision Making Imaging Data Chest x-ray: Attestation: I have reviewed the pertinent imaging results. Radiologist's impression: Patient: CAS LOU Facility:?[facility] RIS Patient ID:?[id number] Site Patient ID:?[id number]. Site :?[id number] Study:?XRay-Chest PORTABLE-03/07/2025 4:18:14 AM Ordering Physician:?Danielle Velasquez Final Report: INDICATION: Cough and wheezing COMPARISON: None. TECHNIQUE: 1 view chest radiograph. FINDINGS: Devices: None Lung volumes are moderate. No focal or diffuse opacities. No pulmonary edema. No pleural effusion. No pneumothorax. No pneumomediastinum. Heart size is normal. Atherosclerosis. Bones: No acute findings. IMPRESSION: Moderate lung volumes. No focal opacity/consolidation. Dictated by Maggy Krishnamurthy MD @ 03/07/2025 4:30:45 AM (Electronic Signature) Discharge Plan Discharge Clinical Impression: Upper respiratory infection, viral, Wheezing Patient Disposition: Home, Self-Care Condition: Stable Instructions: Upper Respiratory Infection (ED), How to Use a Metered-Dose Inhaler and a Spacer (ED) Additional Instructions: Start prednisone 20 mg twice a day for 5 days, take with food to help protect your stomach. Use the albuterol inhaler with the spacer, 2 puffs every 4 hours as needed for cough or wheezing. Recheck if you are not improving over the next week, feel you are worsening with respiratory symptoms or develops fever. May want to talk to your primary care provider about doing pulmonary function testing when you are back to baseline and are healthy. Activity Level: Activity as Tolerated Prescriptions: No Action metoprolol succinate 100 mg tablet extended release 24 hr PO Follow Up/Referrals: Francesco Caballero MD [Primary Care Provider, Family Practice] Stand Alone Forms: [employer] Info Instructions
--- NOTE | 2025-03-07 03:57 | CRLHL7_ITS ---
For Patients: As a result of the Century Cures Act, medical imaging exams and procedure reports are released immediately into your electronic medical record. You may view this report before your referring provider. If you have questions, please contact your health care provider. INDICATION: Cough and wheezing COMPARISON: None. TECHNIQUE: 1 view chest radiograph. FINDINGS: Devices: None Lung volumes are moderate. No focal or diffuse opacities. No pulmonary edema. No pleural effusion. No pneumothorax. No pneumomediastinum. Heart size is normal. Atherosclerosis. Bones: No acute findings. IMPRESSION: Moderate lung volumes. No focal opacity/consolidation. Dictated by Maggy Krishnamurthy MD @ 03/07/2025 4:30:45 AM (Electronically Signed)
[2025-03-07] MEDS: IPRAT-ALBUT 0.5-2.5 MG/3 ML NEB 1 NEB IH (04:05)
--- OUTSIDE RECORDS SUMMARY | 2025-03-07 04:44 | XMS_ITS | CCD ---
Author Name Interface, [email or web address] lity Address [address] [place] [address] Oncology Address [address] [place] [address] Reason for Visit Social History Date Name Value 12/24/2024 Sex Unknown
--- OUTSIDE RECORDS SUMMARY | 2025-03-07 04:44 | XMS_ITS | CCD ---
Author Name Interface, [id number] lity Address [address] [place] [address] Oncology Address [address] [place] [address] Reason for Visit Social History
== END 2025-03-07 05:24 | disposition home or self-care (01) ==
LOC: ED 04:42
PROVIDERS: Emergency Provider Family Medicine; PCP Family Medicine
DX: J06.9 Acute upper respiratory infection, unspecified (principal); R06.2 Wheezing
CPT/HCPCS: 71045; 99283; 99284